=== PATIENT | female | born 1975 | race Hispanic/Latino ===

== ENCOUNTER 2018-04-07 15:18 | Emergency (ER) | payer OTHER ==
[2018-04-07 15:51] VITALS: BMI 21.2
[2018-04-07 15:55] VITALS: O2SAT 99
--- NOTE | 2018-04-07 16:36 | ED PDOC ---
HPI: Female Pain Time Seen by Provider: 04/07/18 15:59 Chief Complaint (Nursing): Abdominal Pain Chief Complaint (Provider): pelvic cramping, heavy periods History Per: Patient History/Exam Limitations: no limitations Additional Complaint(s): 43 y/o F with hx of ulcerative colitis who presents for evaluation of possible uterine fibroids. Pt states that she has been having heavy periods for the past 6 months. Her periods can last up to 2 weeks. She has had periods with clots and significant cramping. She has intermittent dizziness and nausea with cramps, last episode this morning. She is currently having no symptoms and denies dizziness, palpitations, SOB, N/V, diarrhea, dysuria, hesitancy, frequency. Past Medical History Reviewed: Historical Data, Nursing Documentation, Vital Signs Vital Signs: Last Vital Signs Temp 98.2 F 04/07/18 15:51 Pulse 81 04/07/18 15:51 Resp 18 04/07/18 15:51 BP 122/73 04/07/18 15:51 Pulse Ox 99 04/07/18 15:51 - Medical History PMH: No Chronic Diseases - Family History Family History: States: Unknown Family Hx - Allergies Allergies/Adverse Reactions: Allergies Allergy/AdvReac Type Severity Reaction Status Date / Time FISH Allergy RASH Verified 04/07/18 15:51 Physical Exam - Reviewed Nursing Documentation Reviewed: Yes Vital Signs Reviewed: Yes - Physical Exam Appears: Positive for: Well Skin: Positive for: Normal Color Eye Exam: Positive for: Normal appearance Neck: Positive for: Normal Cardiovascular/Chest: Positive for: Regular Rate, Rhythm Respiratory: Positive for: Normal Breath Sounds Gastrointestinal/Abdominal: Positive for: Tenderness (RUQ, RLQ and LLQ tenderness on palpation. ). Negative for: Guarding, Rebound Back: Positive for: Normal Inspection. Negative for: L CVA Tenderness, R CVA Tenderness Lymphatic: Positive for: Normal Exam Neurologic/Psych: Positive for: Alert, Oriented - Laboratory Results Result Diagrams: 04/07/18 16:40 - ECG O2 Sat by Pulse Oximetry: 99 Medical Decision Making Medical Decision Making: URine dip Pelvic U/S CBC Disposition - Clinical Impression Clinical Impression: Abdominal cramps - Patient ED Disposition Is Patient to be Admitted: No Counseled Patient/Family Regarding: Studies Performed, Diagnosis, Need For Followup - Disposition Referrals: Sacha Encarnacion DO [Staff Provider] - Disposition: Routine/Home Disposition Time: 18:50 Condition: STABLE Additional Instructions: F/u with your speech therapy director for further evaluation of uterine masses, which are likely fibroids. Take Tylenol and Ibuprofen for cramping. Return to ER if your bleeding worsens, if you become very dizzy or if your abdominal pain worsens. Forms: [employer] (Serbian) Print Language: LATVIAN
[2018-04-07 16:48] LABS: BASO # 0.1 K/uL (0.0-0.2); EOS # 0.1 K/uL (0.0-0.7); EOS % 1.6 % (0.0-4.0); HEMOGLOBIN 12.2 g/dL (12.0-16.0); LYMPH # 2.2 K/uL (1.0-4.3); LYMPH % 29.4 % (20.0-40.0); MEAN CELL VOLUME 91.9 fl (81.0-99.0); MEAN CORPUSCULAR HEMOGLOBIN 30.4 pg (27.0-31.0); MEAN CORPUSCULAR HGB CONC 33.1 g/dL (33.0-37.0); MEAN PLATELET VOLUME 7.2 fl (7.2-11.7); MONO # 0.6 K/uL (0.0-0.8); MONO % 7.6 % (0.0-10.0); NEUT # 4.5 K/uL (1.8-7.0); NEUT % 60.4 % (50.0-75.0); NRBC % 0.1 % (0.0-0.0); RBC 4.03 Mil/uL (3.80-5.20); RED CELL DISTRIBUTION WIDTH 12.9 % (11.5-14.5); WHITE BLOOD COUNT 7.4 K/uL (4.8-10.8)
--- NOTE | 2018-04-07 18:24 | US ---
Date of service: 04/07/2018 HISTORY: pelvic cramping, heavy bleeding COMPARISON: None available. TECHNIQUE: Transabdominal pelvic ultrasound FINDINGS: UTERUS: Measures 7.7 x 6.1 x 4.0 cm. Anteverted. 5.3 x 4.8 x 4.1 cm anterior and 1.2 x 1.51.3 cm posterior heterogeneous uterine masses likely fibroids ENDOMETRIUM: Measures 1.0 cm. CERVIX: No cervical abnormality identified. RIGHT OVARY: Measures 3.3 x 1.6 x 1 7 cm. Blood flow is demonstrated. LEFT OVARY: Measures 2.4 x 1.6 x 1.3 cm. Blood flow is demonstrated. FREE FLUID: No significant free fluid noted. OTHER FINDINGS: None. IMPRESSION: 5.3 x 4.8 x 4.1 cm anterior and 1.2 x 1.51.3 cm posterior heterogeneous uterine masses likely fibroids
[2018-04-07 18:52] VITALS: BP 120/73; PULSE 80; RESP 17; TEMP 98
== END 2018-04-07 18:52 | disposition home or self-care (01) ==
LOC: H.ER 15:18
DX: R10.2 Pelvic and perineal pain (principal); K51.90 Ulcerative colitis, unspecified, without complications

== ENCOUNTER 2018-05-21 14:46 | Emergency (ER) | payer OTHER ==
[2018-05-21 14:46] VITALS: BMI 21.2
[2018-05-21 15:56] LABS: ALB/GLOB RATIO 1.5 (1.0-2.1); ALT/SGPT 29 U/L (9-52); AST/SGOT 29 U/L (14-36); BLOOD UREA NITROGEN 11 mg/dl (7-17); CALCIUM 9.9 mg/dL (8.4-10.2); GFR NON-AFRICAN AMERICAN > 60
--- NOTE | 2018-05-21 15:57 | RAD ---
Date of service: 05/21/2018 HISTORY: CP COMPARISON: No prior. TECHNIQUE: Chest PA and lateral FINDINGS: LUNGS: No active pulmonary disease. PLEURA: No significant pleural effusion identified. No pneumothorax apparent. CARDIOVASCULAR: No aortic atherosclerotic calcification present. Normal cardiac size. No pulmonary vascular congestion. OSSEOUS STRUCTURES: Old healed left rib fractures 8th and 9th positions laterally. VISUALIZED UPPER ABDOMEN: Normal. OTHER FINDINGS: None. IMPRESSION: No acute cardiopulmonary disease appreciated. Old healed left 8th and 9th rib fractures noted laterally.
[2018-05-21 16:03] LABS: BASO # 0.1 K/uL (0.0-0.2); BASO % 0.6 % (0.0-2.0); EOS % 0.3 % (0.0-4.0); HEMOGLOBIN 13.4 g/dL (12.0-16.0); LYMPH # 1.8 K/uL (1.0-4.3); LYMPH % 21.9 % (20.0-40.0); MEAN CELL VOLUME 90.8 fl (81.0-99.0); MEAN CORPUSCULAR HEMOGLOBIN 30.1 pg (27.0-31.0); MEAN CORPUSCULAR HGB CONC 33.1 g/dL (33.0-37.0); MEAN PLATELET VOLUME 7.6 fl (7.2-11.7); MONO # 0.5 K/uL (0.0-0.8); MONO % 6.3 % (0.0-10.0); NEUT # 5.9 K/uL (1.8-7.0); NEUT % 70.9 % (50.0-75.0); RBC 4.45 Mil/uL (3.80-5.20); RED CELL DISTRIBUTION WIDTH 13.1 % (11.5-14.5); WHITE BLOOD COUNT 8.4 K/uL (4.8-10.8)
[2018-05-21 16:24] LABS: BARBITURATES, UR NEGATIVE (NEGATIVE); BENZODIAZEPINES, UR NEGATIVE (NEGATIVE); OPIATES, UR NEGATIVE (NEGATIVE); PHENCYCLIDINE, UR NEGATIVE (NEGATIVE)
[2018-05-21 16:47] VITALS: O2SAT 100
--- NOTE | 2018-05-21 17:36 | ED PDOC ---
- Laboratory Results Result Diagrams: 05/21/18 15:40 05/21/18 15:40 Lab Results: Troponin I < 0.0120 ng/mL (0.00-0.120) 05/21/18 15:40 Total Bilirubin 0.6 mg/dl (0.2-1.3) 05/21/18 15:40 AST 29 U/L (14-36) 05/21/18 15:40 ALT 29 U/L (9-52) 05/21/18 15:40 Alkaline Phosphatase 78 U/L (38-126) 05/21/18 15:40 Total Protein 8.4 G/DL (6.3-8.2) H 05/21/18 15:40 Albumin 5.0 g/dL (3.5-5.0) 05/21/18 15:40 Globulin 3.4 gm/dL (2.2-3.9) 05/21/18 15:40 Albumin/Globulin Ratio 1.5 (1.0-2.1) 05/21/18 15:40 - ECG O2 Sat by Pulse Oximetry: 100 - Progress ED Course And Treament: XANAX 0.5 MG X 1 DOSE WITH IMPROVEMENT OF SYMPTOMS. PATIENT FEELS IMPROVED AND WOULD LIKE TO GO HOME. CXR: IMPRESSION: No acute cardiopulmonary disease appreciated. Old healed left 8th and 9th rib fractures noted laterally. Disposition - Clinical Impression Clinical Impression: Anxiety attack - POA Present On Arrival: None - Disposition Referrals: [facility] [Outside] Disposition: Routine/Home Disposition Time: 17:36 Condition: FAIR Additional Instructions: GIVEN APPT WITH [facility] 06/11 AT 11:00AM Instructions: Anxiety, Adult (DC) Forms: [facility] ED School/Work Excuse
--- NOTE | 2018-05-21 17:45 | ED PDOC ---
HPI: Psych/Substance Abuse Time Seen by Provider: 05/21/18 15:20 Chief Complaint (Nursing): Anxiety Chief Complaint (Provider): Anxiety History Per: Patient History/Exam Limitations: no limitations Onset/Duration Of Symptoms: Other (prior to arrival) Current Symptoms Are (Timing): Still Present Additional Complaint(s): 43 year old female presents to the ED for evaluation of possible anxiety. 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 She states she has been dealing with her family arguing over her mother's estate lately, making her increasingly upset, but denies any SI/HI. Additionally, patient reports having anxiety issues in the past, about 20 years ago, but was never put on any medications. PMD: none provided Past Medical History Reviewed: Historical Data, Nursing Documentation, Vital Signs Vital Signs: Last Vital Signs Temp 97.3 F L 05/21/18 16:46 Pulse 85 05/21/18 16:46 Resp 18 05/21/18 16:46 BP 106/73 05/21/18 16:46 Pulse Ox 100 05/21/18 17:35 - Medical History PMH: No Chronic Diseases - Surgical History Other surgeries: cervical fusion - Family History Family History: States: Unknown Family Hx - Social History Current smoker - smoking cessation education provided: No Alcohol: None Drugs: Denies - Allergies Allergies/Adverse Reactions: Allergies Allergy/AdvReac Type Severity Reaction Status Date / Time FISH Allergy RASH Verified 04/07/18 15:51 Review of Systems ROS Statement: Except As Marked, All Systems Reviewed And Found Negative Constitutional: Positive for: Other (face flushing) Cardiovascular: Positive for: Palpitations, Other (chest tightness) Psych: Positive for: Anxiety. Negative for: Suicidal ideation (or homicidal ideation) Physical Exam - Reviewed Nursing Documentation Reviewed: Yes Vital Signs Reviewed: Yes - Physical Exam Appears: Positive for: No Acute Distress (but crying during exam) Head Exam: Positive for: ATRAUMATIC, NORMAL INSPECTION, NORMOCEPHALIC Skin: Positive for: Normal Color, Warm Eye Exam: Positive for: Normal appearance Neck: Positive for: Normal, Painless ROM, Supple Cardiovascular/Chest: Positive for: Regular Rate, Rhythm, Chest Non Tender Respiratory: Positive for: Normal Breath Sounds. Negative for: Wheezing, Respiratory Distress Gastrointestinal/Abdominal: Positive for: Normal Exam, Soft. Negative for: Tenderness Back: Positive for: Normal Inspection Extremity: Positive for: Normal ROM (all extremities) Neurologic/Psych: Positive for: Alert, Oriented (x3). Negative for: Motor/Sensory Deficits - Laboratory Results Result Diagrams: 05/21/18 15:40 05/21/18 15:40 Lab Results: Troponin I < 0.0120 ng/mL (0.00-0.120) 05/21/18 15:40 Total Bilirubin 0.6 mg/dl (0.2-1.3) 05/21/18 15:40 AST 29 U/L (14-36) 05/21/18 15:40 ALT 29 U/L (9-52) 05/21/18 15:40 Alkaline Phosphatase 78 U/L (38-126) 05/21/18 15:40 Total Protein 8.4 G/DL (6.3-8.2) H 05/21/18 15:40 Albumin 5.0 g/dL (3.5-5.0) 05/21/18 15:40 Globulin 3.4 gm/dL (2.2-3.9) 05/21/18 15:40 Albumin/Globulin Ratio 1.5 (1.0-2.1) 05/21/18 15:40 - ECG ECG: Positive for: Interpreted By Me, Viewed By Me ECG Rhythm: Positive for: Sinus Rhythm (normal) Interpretation Of ECG: short pr interval noted no signs of acute ischemia O2 Sat by Pulse Oximetry: 100 (RA) Pulse Ox Interpretation: Normal Medical Decision Making Medical Decision Making: Time: 1521 Initial Impression: anxiety Initial Plan: --EKG --Alcohol serum --CMP --Drug screen --Trop I --CBC with differential --CXR --Xanax 0.5mg PO CXR: IMPRESSION: No acute cardiopulmonary disease appreciated. Old healed left 8th and 9th rib fractures noted laterally. 1729 Patient notes improvement in symptoms and states she would like to go home. --- Scribe Attestation: Documented by Norma Colbert, acting as a scribe for Abril Tompkins PA-C. Provider Scribe Attestation: All medical record entries made by the Scribe were at my direction and personally dictated by me. I have reviewed the chart and agree that the record accurately reflects my personal performance of the history, physical exam, medical decision making, and the department course for this patient. I have also personally directed, reviewed, and agree with the discharge instructions and d isposition. Disposition - Clinical Impression Clinical Impression: Anxiety attack - Disposition Referrals: [facility] [Outside] Disposition Time: 17:36 Condition: FAIR Additional Instructions: GIVEN APPT WITH [facility] 06/11 AT 11:00AM Instructions: Anxiety, Adult (DC) Forms: [facility] ED School/Work Excuse
[2018-05-21 17:54] VITALS: TEMP 98
[2018-05-21 17:57] VITALS: BP 115/64; PULSE 74; RESP 21
--- NOTE | 2018-05-22 09:11 | CARD ---
APPROVED REPORT Date of service: 05/21/2018 EKG Measurement Heart [id number] <Conclusion> Sinus rhythm with short NV Otherwise normal ECG
== END 2018-05-21 17:58 | disposition home or self-care (01) ==
LOC: H.ER 14:46
DX: F41.0 Panic disorder [episodic paroxysmal anxiety] (principal); R07.89 Other chest pain